=== PATIENT | female | born 1935 | race Caucasian/White ===

== ENCOUNTER 2022-08-07 15:11 | Inpatient (IN) | payer MEDICARE, OTHER ==
[~2022-08-07] VITALS: Ht 154.9 cm; Wt 56.2 kg
--- NOTE | 2022-08-07 15:20 | NUR ---
PT PUT ON BED PUT ON BEDSIDE MONITOR. DOES NOT SPEAK ENBLISH. PT CAME IN DUE TO BODY WEAKNESS. DR RAYA AT BEDSIDE, FOR EVALUATION.
--- NOTE | 2022-08-07 16:10 | NUR ---
PRIVATE BRANCH EXCHANGE REPAIRER AT BEDSIDE BROIGHT PT TO SCAN VIA CLARA
[2022-08-07 16:11] LABS: BASOPHILS % (AUTO) 0.4 % (0.0-2.0); EOSINOPHILS % (AUTO) 4.9 % (0.0-6.0); HEMATOCRIT 37 % (33-45); HEMOGLOBIN 11.7 g/dL (11.5-14.8); LYMPHOCYTES # (AUTO) 1.1 K/uL (0.8-4.8); LYMPHOCYTES % (AUTO) 14.7 % (20.0-44.0); MEAN CORPUSCULAR HGB CONC 32 g/dl (31.0-36.0); MEAN CORPUSCULAR VOLUME 84 fL (82-100); MONOCYTES # (AUTO) 0.6 K/uL (0.1-1.30); MONOCYTES % (AUTO) 7.7 % (2.0-12.0); NEUTROPHILS # (AUTO) 5.4 K/uL (1.8-8.9); NEUTROPHILS % (AUTO) 72.3 % (43.0-81.0); PLATELET COUNT (AUTO) 311 K/uL (150-450); RED BLOOD CELL COUNT(AUTO) 4.38 MIL/uL (4.0-5.2); WHITE BLOOD COUNT (AUTO) 7.5 K/uL (4.3-11.0)
--- NOTE | 2022-08-07 16:25 | NUR ---
PT BACK FROMCT SCAN VIA JESSICA
[2022-08-07] MEDS ORDERED: ASPIRIN 325 MG TABLET PO ONE (17:00)
[2022-08-07 17:05] LABS: ALANINE AMINOTRANSFERASE 19 U/L (12-78); ALKALINE PHOSPHATASE 148 U/L (46-116); ASPARTATE AMINOTRANSFERASE 65 U/L (15-37); BILIRUBIN,DIRECT 0.2 mg/dL (0.0-0.2); BILIRUBIN,TOTAL 0.6 mg/dL (0.2-1.0); CARBON DIOXIDE 27 mmol/L (21-32); CHLORIDE 101 mmol/L (98-107); GLUCOSE 102 mg/dL (74-106); SODIUM SERUM 136 mmol/L (136-145); TOTAL PROTEIN, SERUM 7.5 g/dL (6.4-8.2)
--- NOTE | 2022-08-07 17:05 | NUR ---
COVID TEST COLLECTED AND SENT
[2022-08-07 17:08] LABS: CALCIUM, SERUM 17.3 mg/dL (8.5-10.1); POTASSIUM 5.3 mmol/L (3.5-5.1); UREA NITROGEN, BLOOD 70 mg/dL (7-18)
[2022-08-07 17:09] LABS: CREATININE 2.9 mg/dL (0.6-1.3)
[2022-08-07] MEDS ORDERED: ASPIRIN 325 MG TABLET ONE (17:12)
[2022-08-07] MEDS ORDERED: ASPI-1420 PO (17:15)
[2022-08-07] MEDS ORDERED: ATOR40TA PO (17:15)
[2022-08-07] MEDS ORDERED: HYDR-4076 PO (17:15)
[2022-08-07] MEDS ORDERED: PENT400T17 PO (17:15)
[2022-08-07] MEDS ORDERED: HYDR-3980 PO (17:15)
[2022-08-07] MEDS ORDERED: HYDR25TA4 PO (17:15)
[2022-08-07] MEDS ORDERED: METO25TA20 PO (17:15)
[2022-08-07] MEDS ORDERED: GABA-532 PO (17:15)
[2022-08-07] MEDS ORDERED: ICOS1CAP PO (17:15)
[2022-08-07] MEDS ORDERED: OXYB10TA30 PO (17:15)
[2022-08-07] MEDS ORDERED: FERR325T29 PO (17:15)
[2022-08-07] MEDS ORDERED: POTA8TAB3 PO (17:15)
[2022-08-07] MEDS ORDERED: AMLO2.5T4 PO (17:15)
[2022-08-07] MEDS ORDERED: APIX2.5T PO (17:15)
[2022-08-07] MEDS ORDERED: CELE-85 PO (17:15)
[2022-08-07] MEDS ORDERED: SENN-261 PO (17:15)
[2022-08-07] MEDS ORDERED: DOCU100C58 PO (17:15)
[2022-08-07] MEDS ORDERED: MORPHINE SULFATE INJ 2 MG/ML DISP.SYRIN IV ONE (17:30)
[2022-08-07] MEDS ORDERED: CALCITONIN,SALMON INJ 400 UNITS/2 ML VIAL IM SCH (17:30)
[2022-08-07] MEDS ORDERED: IV NS 0.9% 500 ML IV ONE (17:30)
--- NOTE | 2022-08-07 17:46 | NUR ---
MARINE FIREMAN AT BEDSIDE
[2022-08-07] MEDS ORDERED: MORPHINE SULFATE INJ 2 MG/ML DISP.SYRIN ONE (18:12)
[2022-08-07] MEDS ORDERED: PAMIDRONATE 90 MG in IV NS 0.9% 500 ML IV ONE (19:30)
--- NOTE | 2022-08-07 19:37 | NUR ---
BUILDINGS AND GROUNDS SUPERINTENDENT AT PT'S BEDSIDE
--- NOTE | 2022-08-07 19:52 | NUR ---
pt endorsed to JACQUELIN Contreras FOR CONTINUATION OF CARE
[2022-08-07] MEDS ORDERED: MAGNESIUM HYDROXIDE 30 ML UDC PO PRN (20:00)
[2022-08-07] MEDS ORDERED: MAG HYDROX/AL HYDROX/SIMETH 30 ML UDC PO PRN (20:00)
[2022-08-07] MEDS ORDERED: ACETAMINOPHEN 325 MG TABLET PO PRN (20:00)
[2022-08-07] MEDS ORDERED: ONDANSETRON HCL/PF 4 MG/2 ML VIAL IVP PRN (20:00)
[2022-08-07] MEDS ORDERED: HYDROCODONE/APAP 5/325MG TABLET PO PRN (20:00)
--- NOTE | 2022-08-07 20:04 | NUR ---
REPORT GIVEN TO BO ROPER FROM [facility].
--- NOTE | 2022-08-07 20:28 | NUR ---
COOLER MANSOLUTIONS MANAGER NOTE RECEIVED PT VIA GURNEY FROM ER WITH ADMITTING DX OF HYPERCALCEMIA. PT IS AWAKE, A/O X 3, BAHRAINI SPEAKING, ABLE TO VERBALIZE NEEDS. ON RA TOLERATING WELL, SATING @ 98%. NO S/SX OF ACUTE RESPI DISTRESS NOTED AT THIS TIME. IV ACCESS ON LAC, #20g, PATENT AND INTACT. ADMISSION CARE RENDERED, SKIN ASSESSMENT DONE, PICTURES TAKEN AND PLACE ON CHART, ALL SAFETY MEASURES IN PLACE: BED LOCKED IN LOW POSITION. BED ALARM ON. SR UP X 2. CALL LIGHT WITHIN REACH. FAMILY MEMBER AT BEDSIDE, WILL CONTINUE TO MONITOR AND REASSESS FOR ANY CHANGES AND WILL CARRY OUT ANY ONGOING AND ACTIVE MD ORDER.
[2022-08-07] MEDS ORDERED: hydrALAZINE HCL 25 MG TABLET PO PRN (20:30)
--- NOTE | 2022-08-07 20:32 | NUR ---
PT TRANSFERRING TO [facility] 116-2 VIA ACLS PROTOCOL. VSS. ALL BELONGINGS WITH PT.
[2022-08-07 20:34] LABS: THYROID STIMULATING HORMONE 2.331 uIU/mL (0.358-3.74)
--- NOTE | 2022-08-07 20:42 | NUR ---
PT TRANSFERRED TO [facility] WITH ACLS PROTOCOL. DAUGHTER AT BEDSIDE
[2022-08-07] MEDS: SENNOSIDES 8.6 MG TABLET PO SCH (21:25)
[2022-08-07] MEDS: IV NS 0.9% 1,000 ML IV SCH (21:25)
--- NOTE | 2022-08-07 21:45 | NUR ---
RN NOTE NOTIFIED DR. TRIVEDI ABOUT PT TROPONIN RESULT AT 191. NNO AT THIS TIME.
--- NOTE | 2022-08-07 23:40 | NUR ---
RN NOTE REPORT GIVEN TO SIMONE ROPER FOR CONTINUITY OF CARE.
--- NOTE | 2022-08-08 01:40 | NUR ---
ENDORSED PATIENT FROM SIMONE ROPER FOR CONTINUATION OF CARE, PT SLEEPING AT THIS TIME NO SOB/ACUTE DISTRESS, WILL CONT TO MONITOR.
[2022-08-08 05:47] LABS: HEMATOCRIT 31 % (33-45); HEMOGLOBIN 10.2 g/dL (11.5-14.8); RED BLOOD CELL COUNT(AUTO) 3.68 MIL/uL (4.0-5.2); WHITE BLOOD COUNT (AUTO) 6.8 K/uL (4.3-11.0)
[2022-08-08 05:48] LABS: BASOPHILS % (AUTO) 0.4 % (0.0-2.0); EOSINOPHILS % (AUTO) 9.1 % (0.0-6.0); LYMPHOCYTES # (AUTO) 1.1 K/uL (0.8-4.8); LYMPHOCYTES % (AUTO) 15.7 % (20.0-44.0); MEAN CORPUSCULAR HGB CONC 33 g/dl (31.0-36.0); MEAN CORPUSCULAR VOLUME 84 fL (82-100); MONOCYTES # (AUTO) 0.4 K/uL (0.1-1.30); MONOCYTES % (AUTO) 6.2 % (2.0-12.0); NEUTROPHILS # (AUTO) 4.6 K/uL (1.8-8.9); NEUTROPHILS % (AUTO) 68.6 % (43.0-81.0); PLATELET COUNT (AUTO) 271 K/uL (150-450)
--- NOTE | 2022-08-08 06:30 | NUR ---
RN CLOSING NOTE 116-2 PATIENT IN BED SLEEPING, FAMILY AT BED SIDE, PT RMAIR NO SOB NO ACUTE DISTRESS, VITALS STABLE, NO CHANGE IN CONDITION, ALL SAFETY MEASURES RENDERRED, DENIES PAIN, WILL ENDORCE HARDY TO AM SHIFT.
[2022-08-08 06:33] LABS: ALANINE AMINOTRANSFERASE 17 U/L (12-78); ALBUMIN 2.3 g/dL (3.4-5.0); ALKALINE PHOSPHATASE 116 U/L (46-116); ASPARTATE AMINOTRANSFERASE 52 U/L (15-37); BILIRUBIN,TOTAL 0.4 mg/dL (0.2-1.0); CARBON DIOXIDE 26 mmol/L (21-32); CHLORIDE 106 mmol/L (98-107); CREATININE 2.7 mg/dL (0.6-1.3); GLUCOSE 90 mg/dL (74-106); POTASSIUM 4.6 mmol/L (3.5-5.1); SODIUM SERUM 137 mmol/L (136-145); TOTAL PROTEIN, SERUM 5.8 g/dL (6.4-8.2); UREA NITROGEN, BLOOD 65 mg/dL (7-18)
[2022-08-08] MEDS: PANTOPRAZOLE 40 MG TABLET.DR PO SCH (06:39)
[2022-08-08 06:45] LABS: THYROID STIMULATING HORMONE 1.569 uIU/mL (0.358-3.74)
--- NOTE | 2022-08-08 07:00 | NUR ---
RECEIVED CRITICAL RESULTS TROPONIN THIS MORNING 196, REPORTED TO DR TRIVEDI AND NO NEW ORDERS AT THIS TIME, CALCIUM CRITICAL 15.5 TRENDING DOWN.
[2022-08-08 07:01] LABS: CALCIUM, SERUM 15.5 mg/dL (8.5-10.1)
--- NOTE | 2022-08-08 07:15 | NUR ---
BEAUTY SHOP MANAGER OPENING NOTES: PATIENT IN BED ASLEEP NO S/S OF PAIN OR DISCOMFORT AT THIS TIME.SON AT BEDSIDE. ON ROOM AIR O2 SAT 99%. NO S/S OF RESPIRATORY DISTRESS NOTED. RIGHT LEG ELEVATED, PULSES PRESENT. RAC SALINE LOCK INTACT INFUSING NS AT 80ML/HR. SAFETY MEASURES IN PLACE, BED LOCKED TO THE LOWEST POSITION. CALL LIGHT AND TABLE WITHIN REACH. CONT. TO MONITOR.
[2022-08-08 08:00] VITALS: BP 129/54
[2022-08-08] MEDS: ASPIRIN EC 81 MG TABLET.DR PO SCH (08:50)
[2022-08-08] MEDS: GABAPENTIN 100 MG CAPSULE PO SCH ×3 (08:50→17:36)
[2022-08-08] MEDS: DOCUSATE SODIUM 100 MG CAPSULE PO SCH ×2 (08:50→17:36)
[2022-08-08] MEDS: METOPROLOL TARTRATE 25 MG TABLET PO SCH ×2 (08:50→17:36)
[2022-08-08] MEDS: ATORVASTATIN 40 MG TABLET PO SCH (08:51)
[2022-08-08] MEDS: IV NS 0.9% 1,000 ML IV SCH (08:56)
[2022-08-08] MEDS ORDERED: APIXABAN 2.5 MG TABLET PO SCH (09:00)
[2022-08-08] MEDS ORDERED: DOCUSATE SODIUM 100 MG CAPSULE PO SCH (09:00)
[2022-08-08 11:45] LABS: FERRITIN 213 ng/mL (8-388)
[2022-08-08 12:00] VITALS: BP_SYST 102; BP_SYST 108; BP_DIAS 45; BP_DIAS 46
[2022-08-08] MEDS: NEPRO VAN 237 ML CAN PO SCH ×2 (12:00→17:45)
[2022-08-08] MEDS: MORPHINE SULFATE INJ 2 MG/ML DISP.SYRIN IV PRN ×2 (12:08→18:15)
[2022-08-08] MEDS: CALCITONIN,SALMON,SYNTHETIC 3.7 ML SPRAY.PUMP NS SCH (12:30)
--- NOTE | 2022-08-08 13:11 | NUR ---
RN NOTES: NOTIFIED DR TRIVEDI MIACALCIN IS NOT AVAILABLE AT THE [facility], PER PHARMACIST WILL BE AVAILABLE TOMORROW, ALSO PER FRUIT TESTER PT IS POSITIVE FOR POPLITEAL VEIN dvT WITH ORDER TO INCREASE ELIQUIS TO 5 MG BID, ORDERS CARRIED OUT
[2022-08-08 16:00] VITALS: BP 108/46
[2022-08-08 17:00] LABS: CARBON DIOXIDE 26 mmol/L (21-32); CHLORIDE 106 mmol/L (98-107); CREATININE 2.8 mg/dL (0.6-1.3); GLUCOSE 84 mg/dL (74-106); POTASSIUM 4.5 mmol/L (3.5-5.1); SODIUM SERUM 138 mmol/L (136-145); UREA NITROGEN, BLOOD 65 mg/dL (7-18)
[2022-08-08] MEDS ORDERED: ENSURE ENLIVE 237 ML LIQUID (VANILLA) PO SCH (17:00)
[2022-08-08 17:04] LABS: CALCIUM, SERUM 14.6 mg/dL (8.5-10.1)
[2022-08-08] MEDS: PROSOURCE / PROSTAT (PYXIS) 30 ML UDC GT SCH (17:37)
[2022-08-08] MEDS: APIXABAN 5 MG TABLET PO SCH (17:38)
--- NOTE | 2022-08-08 19:00 | NUR ---
RN NOTES: NOTED DRY DIAPER ALL DAY BLADDER SCAN DONE ABOVE [address] TRIVEDI WITH ORDER TO INSERT HERCULES CATHETER, DAUGHTER AT BEDSIDE, CATHETER INSERTED ,YELLOW DARK URINE OUTPUT NOTED, CLAMPED CATHETER AFTER 600 ML URINE CAME OUT, ENDORSED TO NEXT SHIFT TO UNCLAMPED IN 30 MINUTES
--- NOTE | 2022-08-08 19:15 | NUR ---
VALIDATION MANAGER CLOSING NOTES: PATIENT IN BED SLEEPING, FAMILY AT BED SIDE, PT RMAIN NO SOB NO ACUTE DISTRESS, VITALS STABLE, NO CHANGE IN CONDITION, ALL SAFETY MEASURES RENDERED, DENIES PAIN, ENDORSED TO INDUSTRIAL EDUCATION INSTRUCTOR RN FOR HARDY .
--- NOTE | 2022-08-08 19:30 | NUR ---
SPRINKLER DRIVER OPENING NOTE RECEIVED PATIENT IN BED ASLEEP, DAUGHTER ON BED SIDE. CURRENTLY ON RA, TOLERATING WELL. NO S/SX OF ACUTE RESPI DISTRESS NOTED AT THIS TIME. NO SOB, BREATHING IS EVEN AND UNLABORED. BUSINESS LAWYER READS SR HR IN 60s. IV ACCESS ON RAC #20G, INTACT AND PATENT, RUNNING NS @ 120 CC/HR. FC IN PLACE, DRAINING YELLOW, CLEAR URINE BY GRAVITY. ALL SAFETY MEASURES IN PLACE: BED IN LOW AND LOCKED POSITION, BED ALARM ON. SIDE RAILS UP X2, HOB ELEVATED, CALL LIGHT AND TABLE WITHIN EASY REACH. WILL CONTINUE TO MONITOR PATIENT.
[2022-08-08 20:00] VITALS: BP 132/52
[2022-08-08] MEDS: IV NS 0.9% 1,000 ML IV PRN (20:42)
[2022-08-08] MEDS: SENNOSIDES 8.6 MG TABLET PO SCH (21:10)
[2022-08-09] VITALS: BP 129/49
[2022-08-09] MEDS: MORPHINE SULFATE INJ 2 MG/ML DISP.SYRIN IV PRN ×3 (00:24→20:24)
[2022-08-09 04:00] VITALS: BP 140/67
[2022-08-09] MEDS: IV NS 0.9% 1,000 ML IV PRN ×2 (04:59→15:28)
--- NOTE | 2022-08-09 06:13 | NUR ---
ADJUNCT WRITING INSTRUCTOR CLOSING NOTE NO SIGNIFICANT CHANGE T/O THE NIGHT. CURRENTLY ON O2 VIA NC @ 3LPM, SATING @ 98%. ALL DUE MEDS GIVEN. NEEDS MET. PM CARE DONE. TURNED AND REPOSITIONED. WILL ENDORSE TO AM SHIFT NURSE FOR HARDY.
[2022-08-09 07:00] LABS: BASOPHILS % (AUTO) 0.3 % (0.0-2.0); EOSINOPHILS % (AUTO) 0.1 % (0.0-6.0); HEMATOCRIT 35 % (33-45); HEMOGLOBIN 10.9 g/dL (11.5-14.8); LYMPHOCYTES # (AUTO) 0.5 K/uL (0.8-4.8); LYMPHOCYTES % (AUTO) 7.3 % (20.0-44.0); MEAN CORPUSCULAR HGB CONC 32 g/dl (31.0-36.0); MEAN CORPUSCULAR VOLUME 86 fL (82-100); MONOCYTES # (AUTO) 0.3 K/uL (0.1-1.30); MONOCYTES % (AUTO) 5.1 % (2.0-12.0); NEUTROPHILS # (AUTO) 5.8 K/uL (1.8-8.9); NEUTROPHILS % (AUTO) 87.2 % (43.0-81.0); PLATELET COUNT (AUTO) 313 K/uL (150-450); RED BLOOD CELL COUNT(AUTO) 4.02 MIL/uL (4.0-5.2); WHITE BLOOD COUNT (AUTO) 6.6 K/uL (4.3-11.0)
[2022-08-09 07:16] LABS: IRON, SERUM 17 ug/dl (50-175); TOTAL IRON BINDING CAPACITY 172 ug/dl (250-450)
--- NOTE | 2022-08-09 07:25 | NUR ---
PHLEBOTOMY INSTRUCTOR OPENING NOTES Recieved pt asleep in bed AOX1. No signs of pain or discomfort at this time. Pt is currently on RA and tolerating it well. IV access on RAC 20G running NS @ 120cc/hr. Pt daughter at bedside. HOB elevated to 30-45 degrees. Siderails up at all times. Call light within reach. Will continue to monitor.
[2022-08-09 08:00] VITALS: BP 139/72
[2022-08-09 08:07] LABS: IMMUNOGLOBULIN A, SERUM 125 mg/dL (64-422); IMMUNOGLOBULIN G, SERUM 1445 mg/dL (586-1602); IMMUNOGLOBULIN M, SERUM 114 mg/dL (26-217)
[2022-08-09] MEDS: NEPRO VAN 237 ML CAN PO SCH ×4 (08:09→16:36)
[2022-08-09 08:38] LABS: ALANINE AMINOTRANSFERASE 18 U/L (12-78); ALBUMIN 2.4 g/dL (3.4-5.0); ALKALINE PHOSPHATASE 133 U/L (46-116); ASPARTATE AMINOTRANSFERASE 64 U/L (15-37); BILIRUBIN,TOTAL 0.5 mg/dL (0.2-1.0); CARBON DIOXIDE 18 mmol/L (21-32); CHLORIDE 107 mmol/L (98-107); CREATININE 2.6 mg/dL (0.6-1.3); GLUCOSE 133 mg/dL (74-106); MAGNESIUM 2.5 mg/dL (1.8-2.4); PHOSPHORUS 5.2 mg/dL (2.5-4.9); POTASSIUM 4.5 mmol/L (3.5-5.1); SODIUM SERUM 138 mmol/L (136-145); TOTAL PROTEIN, SERUM 6.2 g/dL (6.4-8.2); UREA NITROGEN, BLOOD 66 mg/dL (7-18)
[2022-08-09 08:42] LABS: CALCIUM, SERUM 13.5 mg/dL (8.5-10.1)
[2022-08-09] MEDS: ASPIRIN EC 81 MG TABLET.DR PO SCH (08:54)
[2022-08-09] MEDS: DOCUSATE SODIUM 100 MG CAPSULE PO SCH ×3 (08:54→16:35)
[2022-08-09] MEDS: PROSOURCE / PROSTAT (PYXIS) 30 ML UDC GT SCH ×3 (08:54→16:35)
[2022-08-09] MEDS: PANTOPRAZOLE 40 MG TABLET.DR PO SCH (08:55)
[2022-08-09] MEDS: METOPROLOL TARTRATE 25 MG TABLET PO SCH ×3 (08:55→16:36)
[2022-08-09] MEDS: GABAPENTIN 100 MG CAPSULE PO SCH ×4 (08:55→16:36)
[2022-08-09] MEDS: ATORVASTATIN 40 MG TABLET PO SCH (08:55)
[2022-08-09] MEDS: APIXABAN 5 MG TABLET PO SCH ×2 (08:56→16:09)
[2022-08-09] MEDS: CALCITONIN,SALMON,SYNTHETIC 3.7 ML SPRAY.PUMP NS SCH ×2 (09:00→11:14)
--- NOTE | 2022-08-09 09:11 | NUR ---
DIRECTOR CONTENT MARKETING NOTES Lab called to relay critical lab value of calcium 13.5. Dr. Dumont made aware with NNO @ this time.
[2022-08-09 12:00] VITALS: BP 115/48
[2022-08-09 14:07] LABS: *SPE A/G RATIO 0.9 (0.7-1.7); *SPE ALPHA-1-GLOBULIN 0.3 g/dL (0.0-0.4); *SPE ALPHA-2-GLOBULIN 0.6 g/dL (0.4-1.0); *SPE BETA GLOBULIN 0.7 g/dL (0.7-1.3); *SPE M-SPIKE Not Observed g/dL (Not Observed)
[2022-08-09 16:00] VITALS: BP 128/63
[2022-08-09] MEDS: FERROUS SULFATE (325 MG) 325 MG/TAB TABLET PO SCH ×2 (16:08→16:35)
--- NOTE | 2022-08-09 16:36 | NUR ---
CASE MANAGEMENT DIRECTOR NOTES Dr. Dumont at bedside and discussed prognosis with pts family. Dr. Dumont explained to the family that the prognosis was not good and recommended that her code be changed to DNR. Family verbalized understanding and agreed. Pt is lethargic and opens eyes momentarily. Dr. Adam stated to hold all due medication due at this time. Noted and carried out.
[2022-08-09] MEDS: ALBUTEROL FS 2.5 MG/0.5 ML VIAL.NEB NEB SCH ×2 (16:38→20:00)
[2022-08-09] MEDS ORDERED: ALBUTEROL FS 2.5 MG/0.5 ML VIAL.NEB NEB PRN (17:00)
[2022-08-09] MEDS: IV D5/ 0.9% NACL 1,000 ML IV PRN (17:07)
[2022-08-09] MEDS ORDERED: FUROSEMIDE 20 MG/2 ML VIAL IV ONE (17:30)
[2022-08-09] MEDS ORDERED: LORAZEPAM INJ 2 MG/ML VIAL IV PRN (17:30)
--- NOTE | 2022-08-09 18:18 | NUR ---
SEMICONDUCTOR TECHNICIAN NOTES Per Dr. Dumont pt is terminal and family would like DNR/DNI. Witnessed by JACQUELIN Ghosh.
--- NOTE | 2022-08-09 18:30 | NUR ---
PROFESSIONAL POKER PLAYER CLOSING NOTES All due meds and tx given as ordered. Pt tolerated everything well. All needs attended to. Pt is currently on 3L NC and tolerating it well. IV access on RAC 20G patent and intact running D5NS @ 60cc/hr. Will endorse to oncoming nurse.
--- NOTE | 2022-08-09 19:15 | NUR ---
RN OPENING NOTES RECEIVED PATIENT ON BED, AWAKE, A/O x 1 . ON ROOM AIR SATING AT 94%. NO SOB NOTED. AFEBRILE, NO S/S OF DISTRESS NOTED. NOTED WITH RAC #20 PERIPHERAL LINE FLUSHED WITH NS, NO S/S OF INFILTRATION NOTED. RUNNING WITH D5NS # 60 ML/HR. HERCULES CATHETER INTACT, PATENT DRAINING WITH YELLOW URINE OUTPUT. ALL SAFETY PRECAUTION PROVIDED. BED IN LOWEST POSITION, LOCKED. CALL LIGHT WITH IN REACH. FAMILY MEMBER AT BEDSIDE.
[2022-08-09 20:00] VITALS: BP 109/50
[2022-08-09] MEDS: HEPARIN SODIUM, PORCINE 5000 UNITS/1 ML VIAL SQ SCH (20:24)
--- NOTE | 2022-08-09 21:05 | NUR ---
RN NOTES NOTED WITH TEMP- 99.9 FAHRENHEIT, COOLING MEASURE PROVIDED. ACETAMINOPHEN 650 MG PO GIVEN.
--- NOTE | 2022-08-09 22:00 | NUR ---
RN NOTED TEMP RECHECKED OBTAINED 99.6 FAHRENHEIT, CONTINUE COOLING MEASURE.
[2022-08-09] MEDS: SENNOSIDES 8.6 MG TABLET PO SCH (23:00)
[2022-08-10] MEDS: ALBUTEROL FS 2.5 MG/0.5 ML VIAL.NEB NEB SCH ×4 (01:30→19:20)
[2022-08-10 04:00] VITALS: BP 110/59
--- NOTE | 2022-08-10 06:00 | NUR ---
RN NOTES NOTED WITH TEMP- 101.0 FAHRENHEIT, COOLING MEASURE PROVIDED. ACETAMINOPHEN 650 MG PO GIVEN.
[2022-08-10] MEDS: ACETAMINOPHEN 650 MG/SUPP.RECT RC PRN ×2 (06:04→21:27)
[2022-08-10] MEDS: PANTOPRAZOLE 40 MG TABLET.DR PO SCH (07:30)
--- NOTE | 2022-08-10 07:42 | NUR ---
MS RN OPENING NOTES RECEIVED PATIENT IN BED ASLEEP WITH FAMILY AT BEDSIDE. ON 6L OF O2 VIA SIMPLE MASK BREATHING EVEN AND UNLABORED WITH NO S/S OF SOB OR RESPIRATORY DISTRESS NOTED. NOTED WITH RAC #20G PATENT AND INTACT WITH D5NS RUNNING AT 60 ML/HR. HERCULES CATHETER INTACT AND PATENT DRAINING YELLOW URINE OUTPUT. PATIENT NOTED TO HAVE ICE PACKS COOLING MEASURES FOR REPORTED FEVER. ALL SAFETY PRECAUTION PROVIDED WITH BED IN LOWEST LOCKED POSITION, SIDE RAILS UP X3, AND CALL LIGHT WITHIN REACH. WILL CONTINUE TO MONITOR.
[2022-08-10 08:00] VITALS: BP 101/68
[2022-08-10] MEDS: NEPRO VAN 237 ML CAN PO SCH ×2 (08:00→12:00)
--- NOTE | 2022-08-10 08:59 | NUR ---
PATIENT'S FAMILY MEMBER REFUSED BLOOD DRAW TWICE.
[2022-08-10] MEDS: ATORVASTATIN 40 MG TABLET PO SCH (09:00)
[2022-08-10] MEDS: DOCUSATE SODIUM 100 MG CAPSULE PO SCH (09:00)
[2022-08-10] MEDS: GABAPENTIN 100 MG CAPSULE PO SCH ×2 (09:00→13:00)
[2022-08-10] MEDS: ASPIRIN EC 81 MG TABLET.DR PO SCH (09:00)
[2022-08-10] MEDS: CALCITONIN,SALMON,SYNTHETIC 3.7 ML SPRAY.PUMP NS SCH (09:00)
[2022-08-10] MEDS: METOPROLOL TARTRATE 25 MG TABLET PO SCH (09:00)
[2022-08-10] MEDS: FERROUS SULFATE (325 MG) 325 MG/TAB TABLET PO SCH (09:00)
[2022-08-10] MEDS: PROSOURCE / PROSTAT (PYXIS) 30 ML UDC GT SCH (09:00)
--- NOTE | 2022-08-10 09:47 | NUR ---
PER PM RN, PATIENT CAN NO LONGER SWALLOW. MD AWARE. PATIENT'S FAMILY ALSO STATES THAT SHE CAN NO LONGER SWALLOW. WILL ORDER SWALLOW EVAL.
[2022-08-10] MEDS: HEPARIN SODIUM, PORCINE 5000 UNITS/1 ML VIAL SQ SCH (10:15)
--- NOTE | 2022-08-10 11:02 | NUR ---
CANNOT LOCATE MIACALCIN. PHARMACY NOTIFIED. TOLD THEY DO NOT HAVE ANYMORE AND CANNOT PROVIDE ANOTHER ONE.
[2022-08-10] MEDS: IV D5/ 0.9% NACL 1,000 ML IV PRN ×2 (15:35→15:39)
--- NOTE | 2022-08-10 15:45 | NUR ---
PATIENT HAS BEEN RECEIVING FLUID CONTINUOUSLY SINCE 0700 AT RATE OF 60 ML/HR. BAG WAS CHANGED AT APPROXIMATELY 1100. HOWEVER, NEW BAG WAS NOT SCANNED. RATE OF INFUSION WAS CHANGED AT 1535. Addendum: 08/10/22 at 1548 by LEONOR CHOWDARY RN AT 1535 RATE OF INFUSION CHANGED BY DR TRIVEDI TO 40 ML/HR.
[2022-08-10 16:00] VITALS: BP 105/46
[2022-08-10] MEDS: MORPHINE SULFATE INJ 2 MG/ML DISP.SYRIN IV PRN ×2 (16:08→20:05)
--- NOTE | 2022-08-10 18:40 | NUR ---
MS RN CLOSING NOTES RECEIVED IN BED ASLEEP WITH FAMILY AT BEDSIDE. ON 10L OF O2 VIA SIMPLE MASK BREATHING EVEN AND UNLABORED WITH NO S/S OF SOB OR RESPIRATORY DISTRESS NOTED. NOTED WITH RAC #20G PATENT AND INTACT WITH D5NS RUNNING AT 40 ML/HR. HERCULES CATHETER INTACT AND PATENT DRAINING YELLOW URINE OUTPUT. PATIENT IS AFEBRILE. COMFORT MEASURES PROVIDED WITH IVP MORPHINE GIVEN PRN REQUESTED BY FAMILY MEMBERS. ALL SAFETY PRECAUTION PROVIDED WITH BED IN LOWEST LOCKED POSITION, SIDE RAILS UP X3, AND CALL LIGHT WITHIN REACH. WILL ENDORSE TO ONCOMING SHIFT FOR HARDY.
[2022-08-10 20:00] VITALS: BP 136/60
--- NOTE | 2022-08-10 20:53 | NUR ---
DAUGHTER JOSE M CONCERN Patient in bed, lethargic, nonverbal, facial grimace. Low grade temp 99.8F. Daughter Jose M requesting Morphine drip, and check urine for infection. Patient DNR/DNI, goal is comfort. Education given to Gayene and family. Notified Alex Hernández with new orders placed. Will start on Morphine drip, cooling measure rendered.
[2022-08-10] MEDS: MORPHINE SULFATE PF DRIP 250 MG in IV D5W 240 ML IV PRN (22:05)
--- NOTE | 2022-08-10 22:05 | NUR ---
MORPHINE DRIP Patient in bed, facial grimacing, moaning when skin touched or moved. Repositioned, made comfortable in bed. Started Morphine drip 1mg/hr continuous via MUSIC LIBRARY ASSISTANT pump co-signed with JACQUELIN Reid. Patient remains on 10L Oxygen Simple mask.
[2022-08-10] MEDS ORDERED: KEY,NONCONTROL,TO KEEP IN PYXI 1 EA MC ONE (22:08)
[2022-08-11] MEDS: ALBUTEROL FS 2.5 MG/0.5 ML VIAL.NEB NEB SCH ×4 (00:56→19:30)
[2022-08-11 04:00] VITALS: BP 111/52
[2022-08-11] MEDS ORDERED: KEY,NONCONTROL,TO KEEP IN PYXI 1 EA MC ONE ×2 (05:30→18:41)
--- NOTE | 2022-08-11 06:15 | NUR ---
END OF SHIFT REPORT Patient in bed, sleeping arouses easily. Oxygen sat high 90's in 10L simple mask. Right arm IV line intact, IVF continuous, NPO. Temp max 99.8 improved with Tylenol supp and cooling measure. Parada cath draining, output 400ml. No BM during the night. Left heel discoloration, as a standard order wound consult placed. Offload heels at all times. On Morphine drip at 1mg/hr continuous via HOUSECALLS NURSE pump, pain controlled. No lab today. Goal is comfort measure only. Will endorse to oncoming RN.
[2022-08-11] MEDS: IV D5/ 0.9% NACL 1,000 ML IV PRN (07:01)
--- NOTE | 2022-08-11 07:05 | NUR ---
RN NOTES RECEIVED PT ON BED, RESPONDS TO VERBAL STIMULI, ON MORPHINE DRIP AT 1 MG/HR, NPO, IV SITES CDI, IVF AT 40CC/HR RUNNING , SR UP x3, CALL LIGHT WITHIN EASY REACH, CONTINUE PAIN MANAGEMENT AND COMFORT .
[2022-08-11 08:00] VITALS: BP 125/63
[2022-08-11] MEDS: CALCITONIN,SALMON,SYNTHETIC 3.7 ML SPRAY.PUMP NS SCH (09:00)
--- NOTE | 2022-08-11 14:27 | NUR ---
RN NOTES MOUTH CARE DONE, SUPPORTIVE FAMILY AT THE BEDSIDE, CONTINUE PAIN MANAGEMENT.
[2022-08-11 16:00] VITALS: BP 123/65
--- NOTE | 2022-08-11 18:19 | NUR ---
RN NOTES PT REMAINS ON MORPHINE DRIP AT 2 MG/HR , PT AT REST NO DISTESS NOTED, DNR/DNI , IVF AT 40CC/HR RUNNING, SR UP x3,SUPPORTIVE FAMILY AT THE BEDSIDE, WILL ENDORSE TO BURLAP MAN NURSE FOR CONTINUITY OF CARE .
[2022-08-11] MEDS: MORPHINE SULFATE PF DRIP 250 MG in IV D5W 240 ML IV PRN (18:44)
[2022-08-11 20:00] VITALS: BP 106/53
--- NOTE | 2022-08-11 20:07 | NUR ---
MS RN OPENING NOTE PATIENT SLEEPING IN BED, OPENS EYES TO TACTILE STIMULI, FAMILY PRESENT AT BEDSIDE. PATIENT STABLE ON 10 LMP OF O2 VIA MASK, NO S/S OF DISTRESS OR SOB NOTED, BREATHING EVEN AND UNLABORED. IV ACCESS ON RAC #20G INTACT AND INFUSING D5NS @ 40 ML/HR AND MORPHINE DRIP @ 2 MG/HR. HERCULES CATH IN PLACE AND DRAINING URINE BY GRAVITY. SAFETY MEASURES IN PLACE: CALL LIGHT WITHIN REACH, SIDE RAILS UP X 3, BED LOCKED IN LOWEST POSITION, HOB ELEVATED, BED ALARM ON. WILL CONTINUE TO MONITOR PATIENT
[2022-08-12] MEDS: ALBUTEROL FS 2.5 MG/0.5 ML VIAL.NEB NEB SCH ×3 (01:30→12:47)
[2022-08-12 04:00] VITALS: BP 82/45
[2022-08-12 04:45] VITALS: BP 98/54
[2022-08-12] MEDS: IV D5/ 0.9% NACL 1,000 ML IV PRN (06:35)
--- NOTE | 2022-08-12 07:05 | NUR ---
RN OPENING NOTE PATIENT SLEEPING IN BED, FAMILY PRESENT AT BEDSIDE. O2 VIA MASK AT 10L/MIN, SNORING NOTED, IV ACCESS ON RAC #20G INTACT AND INFUSING D5NS @ 40 ML/HR AND MORPHINE DRIP @ 2 MG/HR. HERCULES CATH IN PLACE AND DRAINING URINE BY GRAVITY. SAFETY MEASURES IMPLEMENTED, SIDE RAILS UP X 3, BED LOCKED IN LOWEST POSITION, HOB ELEVATED, BED ALARM ON. WILL CONTINUE TO MONITOR PATIENT.
--- NOTE | 2022-08-12 07:12 | NUR ---
MS RN CLOSING NOTE PATIENT SLEEPING IN BED, OPENS EYES TO TACTILE STIMULI, FAMILY PRESENT AT BEDSIDE. PATIENT STABLE ON 10 LMP OF O2 VIA MASK, NO S/S OF DISTRESS OR SOB NOTED, BREATHING EVEN AND UNLABORED. IV ACCESS ON RAC #20G INTACT AND INFUSING D5NS @ 40 ML/HR AND MORPHINE DRIP @ 2 MG/HR. HERCULES CATH IN PLACE AND DRAINING URINE BY GRAVITY, 600 ML OUTPUT. MEDICATIONS GIVEN ORDERED, PATIENT NEEDS MET, PATIENT TURNED AND REPOSITIONED. SAFETY MEASURES IN PLACE: CALL LIGHT WITHIN REACH, SIDE RAILS UP X 3, BED LOCKED IN LOWEST POSITION, HOB ELEVATED, BED ALARM ON. WILL ENDORSE TO DAYSHIFT RN FOR CONTINUITY OF CARE
[2022-08-12 08:00] VITALS: BP 78/39
[2022-08-12] MEDS: CALCITONIN,SALMON,SYNTHETIC 3.7 ML SPRAY.PUMP NS SCH (08:46)
[2022-08-12] MEDS ORDERED: ATROPINE SULFATE OPHTH SOLN 15 ML BOTTLE SL PRN (14:00)
--- NOTE | 2022-08-12 14:15 | NUR ---
CAME TO THE PATIENTS ROOM AT 15:50 FOR CHECK/ ROUNDING, HAD CONVERSATION WITH FAMILY MEMBERS, SITED AT BEDSIDE, PATIENT REMAINED VERY CALM WITH EVEN BREATHING ON 10L/MIN MASK, AT THAT TIME. AT 14:05-14:08 PT HAD TWO LOUD BREATH, AFTER THAT SEEMINGLY STOP BREATHING. 14:10 UNABLE TO LOCATE PULSES. PATIENT , FAMILY MEMBERS:TWO SONS, DAUGHTER AND ADULT GRANDKIDS AT BEDSIDE.
--- NOTE | 2022-08-12 16:25 | NUR ---
PT HAD EVERYTHING DONE TO BE TRANSFERRED TO MORTUARY PER INFORMATION PROVIDED AND SIGNED BY SON, CLOSE AND EXTENDED FAMILY REMAINED IN ROOM UNTIL PERSON FROM [facility] CAME, ALL RELEASE FORM SIGNED, TAKEN OUT FROM DEPARTMENT AT 16:22.
== END 2022-08-12 14:10 | DRG 682 ==
LOC: ER 15:13 → TELE1 19:30 → MEDSG1 08-09 16:47
PROVIDERS: ADMIT Internal Medicine; ATTEND Internal Medicine
DX: N17.9 Acute kidney failure, unspecified (principal); E43 Unspecified severe protein-calorie malnutrition; I21.A1 Myocardial infarction type 2; C79.51 Secondary malignant neoplasm of bone; C90.00 Multiple myeloma not having achieved remission; C16.9 Malignant neoplasm of stomach, unspecified; G93.40 Encephalopathy, unspecified; M87.9 Osteonecrosis, unspecified; I82.432 Acute embolism and thrombosis of left popliteal vein; C78.00 Secondary malignant neoplasm of unspecified lung; Z51.5 Encounter for palliative care; Z66 Do not resuscitate; E83.52 Hypercalcemia; E87.70 Fluid overload, unspecified; E86.0 Dehydration; E86.9 Volume depletion, unspecified; C50.919 Malignant neoplasm of unspecified site of unspecified female breast; I12.9 Hypertensive chronic kidney disease with stage 1 through stage 4 chronic kidney disease, or unspecified chronic kidney disease; N18.30 Chronic kidney disease, stage 3 unspecified; Z20.822 Contact with and (suspected) exposure to COVID-19; I25.10 Atherosclerotic heart disease of native coronary artery without angina pectoris; Z79.82 Long term (current) use of aspirin; Z79.01 Long term (current) use of anticoagulants; Z79.899 Other long term (current) drug therapy; M19.90 Unspecified osteoarthritis, unspecified site; Z90.3 Acquired absence of stomach [part of]; Z92.21 Personal history of antineoplastic chemotherapy; E86.1 Hypovolemia; E88.09 Other disorders of plasma-protein metabolism, not elsewhere classified; E78.5 Hyperlipidemia, unspecified; I25.2 Old myocardial infarction; Z96.642 Presence of left artificial hip joint; Z98.61 Coronary angioplasty status; M54.30 Sciatica, unspecified side; K80.20 Calculus of gallbladder without cholecystitis without obstruction; D63.1 Anemia in chronic kidney disease; D50.9 Iron deficiency anemia, unspecified; Z82.49 Family history of ischemic heart disease and other diseases of the circulatory system; G89.29 Other chronic pain; Z86.19 Personal history of other infectious and parasitic diseases
CPT/HCPCS: 36415; 70450-TC; 71045-TC; 71250-TC; 72170-TC; 73564-TC; 76641-TC; 80048-TC; 80053-TC; 80076-TC; 82232; 82330; 82378; 82607-TC; 82728-TC; 82784; 82962-TC; 83540-TC; 83605-TC; 83690-TC; 83735-TC; 83880; 83970; 84100-TC; 84155; 84165; 84443-TC; 84484-TC; 85025-TC; 85045-TC; 86300; 86334; 87081-TC; 93307-TC; 93970-TC; A4223; C9803; G0378; J1644; J1940; J2270; J2274; J2430; J7030; J7040; J7042; J7050; J7060